=== PATIENT | male | born 1945 | race Caucasian/White ===

== ENCOUNTER → 2017-09-29 | Outpatient (CLI) | payer MEDICARE ==
[2017-09-29 14:35] LABS: INTERNATIONAL RATION (INR) 1.37; PROTHROMBIN TIME 17.7 SEC (11.4-15.4)
== END ==
LOC: OD 13:15
DX: I48.91 Unspecified atrial fibrillation (principal); I82.409 Acute embolism and thrombosis of unspecified deep veins of unspecified lower extremity
CPT/HCPCS: 36415; 85610